=== PATIENT | female | born 1995 | race Two or more races ===

== ENCOUNTER 2017-12-24 12:23 | Emergency (ER) | payer SELFPAY, MEDICAID | END 2017-12-24 12:31 | disposition left against medical advice (07) | LOC: FTE 12:31 | DX: Z53.21 Procedure and treatment not carried out due to patient leaving prior to being seen by health care provider (principal) ==

== ENCOUNTER 2018-03-04 17:02 | Outpatient (CLI) | payer BC ==
[2018-03-04 17:52] LABS: ADD UMIC YES; UR ASCORBIC ACID NEGATIVE (NEGATIVE); UR BACTERIA FEW /HPF (NONE SEEN); UR BILIRUBIN (Dip) NEGATIVE (NEGATIVE); UR BLOOD (Dip) NEGATIVE (NEGATIVE); UR CLARITY CLOUDY (CLEAR); UR COLOR YELLOW (YELLOW); UR GLUCOSE (Dip) NEGATIVE (NEGATIVE); UR KETONES (Dip) 2+ mg/dL (NEGATIVE); UR LEUKOCYTE ESTERASE (Dip) 2+ Leu/ul (NEGATIVE); UR MUCUS MANY /HPF (NONE SEEN); UR NITRITE (Dip) NEGATIVE (NEGATIVE); UR RBC 2 /HPF (0-5); UR SPECIFIC GRAVITY (Dip) 1.027 (1.003-1.030); UR SQUAMOUS EPITHELIAL CELL MODERATE /HPF (FEW); UR TOTAL PROTEIN (Dip) 1+ mg/dl (NEGATIVE); UR UROBILINOGEN (Dip) NEGATIVE (NEGATIVE); UR WBC 20 /HPF (0-5)
== END 2018-03-04 18:56 | disposition home or self-care (01) ==
LOC: OBT 17:02 → L-D 17:03 → OBT 18:56
DX: O62.9 Abnormality of forces of labor, unspecified (principal); Z3A.27 27 weeks gestation of pregnancy
CPT/HCPCS: 76817; 76818; 81001; 87086

== ENCOUNTER 2018-05-08 09:18 | Outpatient (CLI) | payer BC ==
[2018-05-08] MEDS ORDERED: TERBUTALINE 1 ML (11:39)
[2018-05-08] MEDS: LACTATED RINGER'S 1,000 ML IV ×2 (12:01→16:14)
[2018-05-08] MEDS: TERBUTALINE 1 MG/ML INJ SC (12:01)
[2018-05-09] MEDS ORDERED: FERROUS SULFATE (EC) 325 MG TAB PO (09:00)
[2018-05-09] MEDS ORDERED: PRENATAL VITAMIN PO (09:00)
== END 2018-05-09 00:43 | disposition home or self-care (01) ==
LOC: OBT 09:18 → L-D 09:18 → OBT 05-09 00:43 → L-D 13:00
DX: O76 Abnormality in fetal heart rate and rhythm complicating labor and delivery (principal); Z3A.36 36 weeks gestation of pregnancy
CPT/HCPCS: 76818; 96360; 96372

== ENCOUNTER 2018-05-28 21:51 | Inpatient (IN) | payer BC ==
[2018-05-29] MEDS: LACTATED RINGER'S 1,000 ML IV* ×6 (00:03→23:05)
[2018-05-29 00:56] LABS: ADD UMIC YES; UR ASCORBIC ACID NEGATIVE (NEGATIVE); UR BACTERIA FEW /HPF (NONE SEEN); UR BILIRUBIN (Dip) NEGATIVE (NEGATIVE); UR BLOOD (Dip) NEGATIVE (NEGATIVE); UR CLARITY CLEAR (CLEAR); UR COLOR YELLOW (YELLOW); UR GLUCOSE (Dip) NEGATIVE (NEGATIVE); UR KETONES (Dip) NEGATIVE (NEGATIVE); UR LEUKOCYTE ESTERASE (Dip) TRACE Leu/ul (NEGATIVE); UR MUCUS FEW /HPF (NONE SEEN); UR NITRITE (Dip) NEGATIVE (NEGATIVE); UR RBC 1 /HPF (0-5); UR SPECIFIC GRAVITY (Dip) 1.026 (1.003-1.030); UR SQUAMOUS EPITHELIAL CELL FEW /HPF (FEW); UR TOTAL PROTEIN (Dip) 1+ mg/dl (NEGATIVE); UR UROBILINOGEN (Dip) 1+ mg/dL (NEGATIVE); UR WBC 3 /HPF (0-5)
[2018-05-29 03:18] LABS: ADD MAN DIFF? NO
[2018-05-29 03:20] LABS: WHITE BLOOD COUNT 7.5 10^3/ul (4.8-10.8)
[2018-05-29 03:20] LABS: BASOPHILS % 0.3 % (0.0-2.0); EOSINOPHILS # 0.1 10^3/ul (0.0-0.5); EOSINOPHILS % 1.6 % (0.0-7.0); HEMATOCRIT 32.7 % (37.0-47.0); HEMOGLOBIN 10.5 g/dl (12.0-16.0); LYMPHOCYTES % 27.1 % (15.0-51.0); MEAN CORPUSCULAR HEMOGLOBIN 27.9 pg (29.0-33.0); MEAN CORPUSCULAR HGB CONC 32.1 g/dl (32.0-37.0); MEAN CORPUSCULAR VOLUME 86.7 fl (82.0-101.0); MEAN PLATELET VOLUME 10.1 fl (7.4-10.4); MONOCYTE # 0.8 10^3/ul (0.3-0.9); MONOCYTES % 11.3 % (0.0-11.0); NEUTROPHIL # 4.4 10^3/ul (1.6-7.5); PLATELET COUNT 297 10^3/UL (140-415); RED BLOOD COUNT 3.77 10^6/ul (4.20-5.40); RED CELL DISTRIBUTION WIDTH 14.6 % (11.5-14.5)
[2018-05-29] MEDS ORDERED: OXYTOCIN 30 UNITS/LR 500 ML IV (11:00)
[2018-05-29] MEDS ORDERED: MISOPROSTOL 200 MCG TAB PR (11:00)
[2018-05-29] MEDS ORDERED: LIDOCAINE 1% (MPF) 30 ML INJ INJ (11:00)
[2018-05-29] MEDS ORDERED: METHYLERGONOVINE 0.2 MG INJ IM (11:00)
[2018-05-29] MEDS ORDERED: CARBOPROST 250 MCG INJ IM (11:00)
[2018-05-29] MEDS ORDERED: AMPICILLIN 2 GM/NS (PMX) 100 ML IV (11:00)
[2018-05-29] MEDS ORDERED: BUTORPHANOL 2 MG INJ IV (11:00)
[2018-05-29] MEDS: OXYTOCIN 30 UNITS/LR 500 ML IV (12:01)
[2018-05-29] MEDS ORDERED: AMPICILLIN 1 GM/NS (PMX) 50 ML IV (14:30)
[2018-05-29 14:42] LABS: ADD MAN DIFF? NO
[2018-05-29 14:46] LABS: BASOPHILS % 0.3 % (0.0-2.0); EOSINOPHILS # 0.1 10^3/ul (0.0-0.5); HEMATOCRIT 33.1 % (37.0-47.0); HEMOGLOBIN 10.6 g/dl (12.0-16.0); LYMPHOCYTES # 1.6 10^3/ul (0.8-2.9); LYMPHOCYTES % 25.8 % (15.0-51.0); MEAN CORPUSCULAR HEMOGLOBIN 27.7 pg (29.0-33.0); MEAN CORPUSCULAR VOLUME 86.6 fl (82.0-101.0); MEAN PLATELET VOLUME 9.4 fl (7.4-10.4); MONOCYTE # 0.6 10^3/ul (0.3-0.9); MONOCYTES % 9.9 % (0.0-11.0); NEUTROPHIL # 3.9 10^3/ul (1.6-7.5); NEUTROPHILS % 62.5 % (39.0-77.0); PLATELET COUNT 270 10^3/UL (140-415); RED BLOOD COUNT 3.82 10^6/ul (4.20-5.40); RED CELL DISTRIBUTION WIDTH 14.6 % (11.5-14.5)
[2018-05-29 14:46] LABS: WHITE BLOOD COUNT 6.3 10^3/ul (4.8-10.8)
[2018-05-29 14:49] LABS: HEPATITIS B SURFACE ANTIGEN NEGATIVE (NEGATIVE)
[2018-05-29 15:06] LABS: INR 0.87; PROTIME 11.9 Sec (11.9-14.9); PT RATIO 0.9
[2018-05-29 15:07] LABS: PARTIAL THROMBOPLASTIN TIME 26.1 Sec (25.0-35.0)
[2018-05-29] MEDS ORDERED: HYDROmorphONE 0.5 MG/0.5 ML SYG IV ×2 (23:30)
[2018-05-29] MEDS ORDERED: ZOLPIDEM 5 MG TAB PO (23:30)
[2018-05-29] MEDS ORDERED: KETOROLAC 30 MG INJ IV (23:30)
[2018-05-29] MEDS ORDERED: NALOXONE (0.4 MG/ML) INJ IV (23:30)
[2018-05-29] MEDS ORDERED: ONDANSETRON 4 MG INJ IV (23:30)
[2018-05-29] MEDS ORDERED: DIPHENHYDRAMINE 50 MG INJ IV (23:30)
[2018-05-30] MEDS: LACTATED RINGER'S 1,000 ML IV* ×4 (00:28→20:53)
[2018-05-30] MEDS: FENTAnyl 2MCG/ML-ROPIV 0.2% 100 ML BAG EPI (08:32)
[2018-05-30] MEDS: MINERAL OIL LIGHT 10 ML VIAL TOP (10:30)
[2018-05-30] MEDS: OXYTOCIN 30 UNITS/LR 500 ML IV (10:32)
[2018-05-30] MEDS ORDERED: MISOPROSTOL 200 MCG TAB PR (13:00)
[2018-05-30] MEDS ORDERED: DIBUCAINE 1% 30 GM OINT PR (13:00)
[2018-05-30] MEDS ORDERED: HYDROCODONE/APAP (5/325) TAB PO ×2 (13:00)
[2018-05-30] MEDS ORDERED: CARBOPROST 250 MCG INJ IM (13:00)
[2018-05-30] MEDS ORDERED: LANOLIN 7 GM TUBE TOP (13:00)
[2018-05-30] MEDS ORDERED: OXYTOCIN 30 UNITS/LR 500 ML IV (13:00)
[2018-05-30] MEDS ORDERED: METHYLERGONOVINE 0.2 MG INJ IM (13:00)
[2018-05-30] MEDS ORDERED: ZOLPIDEM 5 MG TAB PO (13:00)
[2018-05-30] MEDS: WITCH HAZEL/GLYCERIN PAD PR (14:02)
[2018-05-30] MEDS: BENZOCAINE 20% 56 ML SPRAY TOP (14:02)
[2018-05-30] MEDS: AMPICILLIN/SULB 3 GM/NS (PMX) 100 ML IVPB ×3 (14:03→23:54)
[2018-05-30] MEDS: IBUPROFEN 600 MG TAB PO ×2 (17:34→23:54)
[2018-05-30] MEDS: SENNA/DOCUSATE NA (8.6MG/50MG) TAB PO (22:10)
[2018-05-30] MEDS: MAGNESIUM HYDROXIDE 30ML CUP PO (22:11)
[2018-05-30 22:17] LABS: RAPID PLASMA REAGIN NONREACTIVE (NR)
[2018-05-31] MEDS: LACTATED RINGER'S 1,000 ML IV* ×3 (05:50→20:53)
[2018-05-31] MEDS: IBUPROFEN 600 MG TAB PO ×3 (05:51→18:00)
[2018-05-31] MEDS: AMPICILLIN/SULB 3 GM/NS (PMX) 100 ML IVPB ×3 (05:51→17:11)
[2018-05-31 06:56] LABS: ADD MAN DIFF? NO
[2018-05-31 07:04] LABS: WHITE BLOOD COUNT 12.6 10^3/ul (4.8-10.8)
[2018-05-31 07:04] LABS: BASOPHILS % 0.2 % (0.0-2.0); EOSINOPHILS # 0.2 10^3/ul (0.0-0.5); EOSINOPHILS % 1.4 % (0.0-7.0); HEMATOCRIT 25.5 % (37.0-47.0); HEMOGLOBIN 8.3 g/dl (12.0-16.0); LYMPHOCYTES # 3.6 10^3/ul (0.8-2.9); LYMPHOCYTES % 28.7 % (15.0-51.0); MEAN CORPUSCULAR HEMOGLOBIN 28.4 pg (29.0-33.0); MEAN CORPUSCULAR HGB CONC 32.5 g/dl (32.0-37.0); MEAN CORPUSCULAR VOLUME 87.3 fl (82.0-101.0); MEAN PLATELET VOLUME 9.9 fl (7.4-10.4); MONOCYTE # 1.3 10^3/ul (0.3-0.9); MONOCYTES % 10.3 % (0.0-11.0); NEUTROPHIL # 7.4 10^3/ul (1.6-7.5); NEUTROPHILS % 58.9 % (39.0-77.0); PLATELET COUNT 226 10^3/UL (140-415); RED BLOOD COUNT 2.92 10^6/ul (4.20-5.40); RED CELL DISTRIBUTION WIDTH 14.9 % (11.5-14.5)
[2018-05-31] MEDS: SENNA/DOCUSATE NA (8.6MG/50MG) TAB PO ×2 (09:00→21:28)
[2018-05-31] MEDS: MAGNESIUM HYDROXIDE 30ML CUP PO ×2 (09:00→21:28)
[2018-06-01] MEDS: AMPICILLIN/SULB 3 GM/NS (PMX) 100 ML IVPB ×2 (00:16→06:00)
[2018-06-01] MEDS: IBUPROFEN 600 MG TAB PO ×2 (00:16→06:00)
[2018-06-01] MEDS: LACTATED RINGER'S 1,000 ML IV* (04:53)
[2018-06-01] MEDS: SENNA/DOCUSATE NA (8.6MG/50MG) TAB PO (09:00)
[2018-06-01] MEDS: MAGNESIUM HYDROXIDE 30ML CUP PO (09:00)
[2018-06-01] MEDS: DIPHTH/TET/ACEL PERTUSS (ADULT) 0.5 ML VIAL IM* (09:04)
[2018-06-01] MEDS: MEASLES,MUMPS,RUBELLA VACCINE INJ SC* (09:05)
[2018-06-01] MEDS: VARICELLA VACCINE LIVE/PF 1,350 UNIT/0.5 ML ML SC* (09:05)
== END 2018-06-01 12:50 | disposition home or self-care (01) | DRG 775 ==
LOC: OBT 21:51 → PP1 05-30 11:53 → L-D 21:52
PROVIDERS: Obstetrics & Gynecology
PROC: 10E0XZZ Delivery of Products of Conception, External Approach (ICD-10-PCS; principal; 2018-05-30)
DX: O80 Encounter for full-term uncomplicated delivery (principal); Z3A.39 39 weeks gestation of pregnancy; Z37.0 Single live birth
CPT/HCPCS: 36415; 62319; 76818; 81001; 85025; 85610; 85730; 86592; 86850; 86900; 86901; 87040; 87086; 87340; 96360; 96361